=== PATIENT | female | born 1960 | race Caucasian/White ===

== ENCOUNTER 2017-02-18 20:20 | Emergency (ER) | payer BC, OTHER ==
[2017-02-18 20:40] VITALS: BP 108/78
[2017-02-18] MEDS ORDERED: Amoxicillin/Clavulanate TAB* 875 MG PO ONE ×2 (21:03→21:04)
--- NOTE | 2017-02-18 21:12 | UC ---
Ear Complaint HPI - HPI Summary HPI Summary: 56 y/o female presents to the urgent care c/o LF ear pain for the past week. Pain is 8/10 this morning and now is 4/10. She has been taking ibuprofen and Tylenol to alleviates symptoms. Pt also states on 02/07/2014 she was at a wedding and she fell. She injured her posterior RT thigh and her Left calf. she has bruises in that area with mild pain. A doctor at the [employer] [facility] examined her and told her she probably pulled her "hamstrings" She would like her legs to be checked. She has been taking ibuprofen, applied ice and pain is resolving. She now has big bruises. Pt denies fevr, SOB, chest pain, BURKS, N/V/D, - History of Current Complaint Chief Complaint: UCGeneralIllness Stated Complaint: LFT EAR COMPLAINT/RT LEG COMPLAINT Time Seen by Provider: 02/18/17 20:32 Hx Obtained From: Patient ?: No Onset/Duration: Gradual Onset, Lasting Days, Still Present Severity Initially: Moderate Severity Currently: Moderate Pain Intensity: 4 Pain Scale Used: 0-10 Numeric Aggravating Factors: Nothing Alleviating Factors: OTC Meds - Allergies/Home Medications Allergies/Adverse Reactions: Allergies Allergy/AdvReac Type Severity Reaction Status Date / Time Egg Yolk Allergy Severe Hives Verified 02/18/17 20:26 Adhesive Tape Allergy Intermediate Rash, local Verified 02/18/17 20:25 topical sulfa Allergy Severe inflamation Uncoded 02/18/17 20:26 Home Medications: Home Medications Bimatoprost 0.01% OPHTH (NF) [Lumigan 0.01% OPHTH (NF)] 1 drop BOTH EYES QPM [History Confirmed 02/18/17] Diclofenac [Zorvolex] 70 mg PO DAILY 02/18/17 [History Confirmed 02/18/17] Insulin GLARGINE(*) [Lantus(*)] 40 units SUBCUT Q24H 02/18/17 [History Confirmed 02/18/17] Lisinopril TAB* [Prinivil TAB 10 MG*] 10 mg PO DAILY 02/18/17 [History Confirmed 02/18/17] Loteprednol Etabonate [Lotemax] 0.5 % BOTH EYES DAILY 02/18/17 [History Confirmed 02/18/17] metFORMIN* [Glucophage 500 MG TAB *] 500 mg PO BID 02/18/17 [History Confirmed 02/18/17] PMH/Surg Hx/FS Hx/Imm Hx Previously Healthy: Yes Endocrine History: Diabetes - Surgical History Surgical History: Yes Surgery Procedure, Year, and Place: CORNEAL TRANSPLANTS. HYSTERECTOMY. C- SECTIONS -3. GALL BLADDER. APPENDECTOMY - Family History Known Family History: Positive: Diabetes - Social History Occupation: Employed Full-time Lives: With Family Alcohol Use: None Substance Use Type: None Smoking Status (MU): Never Smoked Tobacco Review of Systems Constitutional: Negative Skin: Negative Eyes: Negative ENT: Ear Ache - LF ear pain Respiratory: Negative Cardiovascular: Negative Gastrointestinal: Negative Genitourinary: Negative Motor: Negative Neurovascular: Negative Musculoskeletal: Other: - RT thight with brusises and lf calf with brusises s/p fall 1 week ago Neurological: Negative Psychological: Negative All Other Systems Reviewed And Are Negative: Yes Physical Exam Triage Information Reviewed: Yes Appearance: Well-Appearing, No Pain Distress, Well-Nourished, Obese Vital Signs: Initial Vital Signs Temp 98.5 F 02/18/17 20:29 Pulse 84 02/18/17 20:29 Resp 16 02/18/17 20:29 BP 108/78 02/18/17 20:29 Pulse Ox 97 02/18/17 20:29 Vital Signs Reviewed: Yes Eye Exam: Normal Eyes: Positive: Conjunctiva Clear - PERRLA, EOMI ENT: Positive: Normal ENT inspection, Hearing grossly normal, Pharynx normal, TMs normal - RT external ear canal, and TM WNL, LF external ear canal clear and TM with erythema and yelowiish drainage. No light reflex. Negative: Nasal congestion, Nasal drainage, Tonsillar swelling, Tonsillar exudate Dental Exam: Normal Neck exam: Normal Neck: Positive: Supple, Nontender, Enlarged Nodes @ - LF side anterior cervical lymphnode Respiratory Exam: Normal Respiratory: Positive: Chest non-tender, Lungs clear, Normal breath sounds Cardiovascular Exam: Normal Cardiovascular: Positive: RRR, No Murmur, Pulses Normal Abdominal Exam: Normal Abdomen Description: Positive: Nontender, No Organomegaly, Soft. Negative: CVA Tenderness (R), CVA Tenderness (L) Bowel Sounds: Positive: Present, Absent Musculoskeletal Exam: Normal Musculoskeletal: Positive: Strength Intact, ROM Intact, No Edema, Other: - RT posterior aspect of thigh with a large bruise purple and yellowish in color, non tender to palpation sixe 12xm 14cm in size. LF calf with similar bruise about 4cm x 5cm in size non tender to palpation, B/L FROM and positive pulses, capillary refill brisk, sensation intact. Neurological Exam: Normal Psychological Exam: Normal Skin Exam: Normal Ear Complaint Course/Dx - Course Course Of Treatment: 56 y/o female presents to the urgent care c/o LF ear pain for the past week. Pain is 8/10 this morning and now is 4/10. She has been taking ibuprofen and Tylenol to alleviates symptoms. Pt also states on 2013 she was at a wedding and she fell. She injured her posterior RT thigh and her Left calf. she has bruises in that area with mild pain. A doctor at the [employer] examined her and told her she probably pulled her "hamstrings" She would like her legs to be checked. She has been taking ibuprofen, applied ice and pain is resolving. She now has big bruises. Pt denies fevr, SOB, chest pain, BURKS , N/V/D. HX obtained, PE performed, Medications reviewed. Pt given first dose of Augmentin PO at the clinic since pharmacy is closed. Pt Rx Augmentin for Otitis Media and advised to take diclofenac she has at home only for 2-3 days to alleviate pain. Pt counseled not to take combination of nsaids when she has pain since she has HX of DM. Pt counseled her bruises will take longer to disappear. However if she feels the pain is increasing despite taking the medication and she develops SOB or chest pain to go immediately to the ER. Pt undersood and agreed. - Differential Dx/Diagnosis Differential Diagnosis/HQI/PQRI: Barotrauma, Cerumen Impaction, Otitis Externa, Otitis Media, Perforated TM, Other - tendonitis, sprain, strain, contusion, hematoma, DVT Provider Diagnoses: 1- Acute otits media. 2- billateral leg contusion s/p fall Discharge - Discharge Plan Condition: Stable Disposition: HOME Prescriptions: Amoxicillin/Clavulanate TAB* [Augmentin TAB 875*] 875 mg PO BID #19 tab Fluconazole 150 MG (NF) [Diflucan 150 mg (NF)] 150 mg PO ONCE #2 tab Patient Education Materials: Otitis Media (ED), Contusion in Adults (ED) Referrals: Dusty Cortez MD [Medical Doctor] - If Needed Additional Instructions: 1- Please take full course of antibiotic to avoid resistance. 2- Continue taking the Diclofenac PO you have at home to alleviate symptoms of pain. 3- Take the Fluconazole only if you develop a yeast infection after taking the antibiotic 4- If not improvement of symptoms please f/u with your PCP for further evaluation and treatment
== END 2017-02-18 21:26 | disposition home or self-care (01) ==
LOC: UCCORT 20:20
DX: H66.92 Otitis media, unspecified, left ear (principal); S70.11XA Contusion of right thigh, initial encounter; S80.12XA Contusion of left lower leg, initial encounter; W19.XXXA Unspecified fall, initial encounter; Y93.9 Activity, unspecified; Y92.9 Unspecified place or not applicable; E11.9 Type 2 diabetes mellitus without complications; Z79.4 Long term (current) use of insulin; Z79.84 Long term (current) use of oral hypoglycemic drugs; E66.9 Obesity, unspecified; Z94.7 Corneal transplant status; Z90.710 Acquired absence of both cervix and uterus
CPT/HCPCS: 99202; A9270-GY; G0463

== ENCOUNTER 2017-03-11 20:35 | Emergency (ER) | payer OTHER ==
[2017-03-11 21:05] VITALS: BP 102/73
--- NOTE | 2017-03-11 21:12 | UC ---
Ear Complaint HPI - HPI Summary HPI Summary: left ear pain x 2 weeks dx with om 2 weeks ago , finished abx but the pain never went away and been worse over the past few days no cold sx, no fever, no chills - History of Current Complaint Chief Complaint: UCEar Stated Complaint: ear pain Time Seen by Provider: 03/11/17 20:36 Hx Obtained From: Patient Onset/Duration: Gradual Onset, Lasting Weeks - 2, Still Present Severity Currently: Moderate Pain Intensity: 6 Pain Scale Used: 0-10 Numeric Aggravating Factors: Nothing Alleviating Factors: Nothing Associated Signs/Symptoms: Negative: Discharge, Hearing Loss, Foreign Body Sensation, Trauma to Ear, Swelling @, URI Symptoms - Allergies/Home Medications Allergies/Adverse Reactions: Allergies Allergy/AdvReac Type Severity Reaction Status Date / Time Egg Yolk Allergy Severe Hives Verified 03/11/17 20:50 Adhesive Tape Allergy Intermediate Rash, local Verified 03/11/17 20:50 topical sulfa Allergy Severe inflamation Uncoded 03/11/17 20:50 PMH/Surg Hx/FS Hx/Imm Hx Endocrine History: Diabetes - Surgical History Surgical History: Yes Surgery Procedure, Year, and Place: CORNEAL TRANSPLANTS. HYSTERECTOMY. C- SECTIONS -3. GALL BLADDER. APPENDECTOMY - Family History Known Family History: Positive: Diabetes - Social History Alcohol Use: None Substance Use Type: None Smoking Status (MU): Never Smoked Tobacco Review of Systems Constitutional: Negative Skin: Negative Eyes: Negative ENT: Ear Ache Respiratory: Negative Cardiovascular: Negative Gastrointestinal: Negative All Other Systems Reviewed And Are Negative: Yes Physical Exam Triage Information Reviewed: Yes Appearance: Well-Appearing, No Pain Distress, Well-Nourished Vital Signs: Initial Vital Signs Temp 99.2 F 03/11/17 20:44 Pulse 92 03/11/17 20:44 Resp 18 03/11/17 20:44 BP 102/73 03/11/17 20:44 Pulse Ox 98 03/11/17 20:44 Vital Signs Reviewed: Yes Eyes: Positive: Conjunctiva Clear ENT: Positive: Normal ENT inspection, Hearing grossly normal, Pharynx normal, TMs normal, Other: - + tenderness left TMJ. Negative: Nasal congestion, Nasal drainage, TM bulging, TM dull, TM red Neck exam: Normal Neck: Positive: Supple Respiratory: Positive: Chest non-tender, Lungs clear, Normal breath sounds Cardiovascular: Positive: RRR, No Murmur, Pulses Normal Musculoskeletal Exam: Normal Skin Exam: Normal Ear Complaint Course/Dx - Differential Dx/Diagnosis Provider Diagnoses: TMJ. OTALGIA LEFT Discharge - Discharge Plan Condition: Stable Disposition: HOME Patient Education Materials: Temporomandibular Disorder (ED) Referrals: Dov Villaseñor MD [Primary Care Provider] - 2 Weeks
== END 2017-03-11 21:08 | disposition home or self-care (01) ==
LOC: UCCORT 20:35
DX: M26.602 Left temporomandibular joint disorder, unspecified (principal); E11.9 Type 2 diabetes mellitus without complications; H92.02 Otalgia, left ear
CPT/HCPCS: 99211; G0463